=== PATIENT | male | born 1970 | race Caucasian/White ===

== ENCOUNTER 2016-09-02 16:55 | Emergency (ER) | payer OTHER ==
[~2016-09-02] VITALS: Ht 180.3 cm; Wt 85.7 kg
[2016-09-02] MEDS ORDERED: MOTRIN600 MG PO (18:08)
[2016-09-02 18:20] VITALS: BP 130/81
== END 2016-09-02 18:25 | disposition home or self-care (01) ==
LOC: EME 16:55
DX: S29.011A Strain of muscle and tendon of front wall of thorax, initial encounter (principal); X58.XXXA Exposure to other specified factors, initial encounter; Y93.67 Activity, basketball
CPT/HCPCS: 99281; 99283